=== PATIENT | female | born 2005 | race African-American/Black ===

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

== ENCOUNTER 2024-04-11 17:55 | Emergency (ER) | payer MEDICAID ==
[~2024-04-11] VITALS: Ht 175.3 cm; Wt 54.0 kg
[2024-04-11 17:56] VITALS: TEMP 97.5; O2SAT 100
[2024-04-11] MEDS ORDERED: HYDR-459 MT (18:25)
[2024-04-11] MEDS: LORAZEPAM 1MG TABLET PO ONE (18:38)
[2024-04-11 18:57] VITALS: BP 120/90; PULSE 100; RESP 16; O2SAT 100
== END 2024-04-11 18:50 | disposition home or self-care (01) ==
LOC: ER 17:55
DX: F41.9 Anxiety disorder, unspecified (principal)
CPT/HCPCS: 99283